=== PATIENT | female | born 1945 | race Caucasian/White ===

== ENCOUNTER 2019-03-03 17:19 | Emergency (ER) | payer MEDICARE ==
[2019-03-03 18:09] VITALS: BP 145/74
[2019-03-03] MEDS ORDERED: Cephalexin CAP* 500 MG PO ONE (18:27)
[2019-03-03] MEDS ORDERED: Phenazopyridine TAB* 100 MG PO ONE (18:27)
--- NOTE | 2019-03-03 18:32 | UC ---
Complaint Male HPI - HPI Summary HPI Summary: Patient is a 73-year-old female with the onset of dysuria urgency and frequency that started yesterday. Today she has noted blood in her urine. She denies any back pain or belly pain. She has had no fever or chills. She denies any nausea vomiting or diarrhea. She has not had a urinary tract infection for over 20 years. She did take a bath the day before her symptoms started. - History of Current Complaint Chief Complaint: UCGU Stated Complaint: URINARY COMPLAINT Time Seen by Provider: 03/03/19 18:21 Hx Obtained From: Patient Onset/Duration: Gradual Onset, Lasting Days Timing: Intermittent, Lasting Seconds Severity Initially: Moderate Severity Currently: Moderate Pain Intensity: 5 - when urinating Pain Scale Used: 0-10 Numeric Location: Suprapubic Character: Burning Aggravating Factor(s): Voiding Associated Signs And Symptoms: Positive: Negative - Allergies/Home Medications Allergies/Adverse Reactions: Allergies Allergy/AdvReac Type Severity Reaction Status Date / Time No Known Allergies Allergy Verified 03/03/19 18:09 Home Medications: Home Medications Cranberry 500 mg PO DAILY 03/03/19 [History Confirmed 03/03/19] PMH/Surg Hx/FS Hx/Imm Hx Previously Healthy: Yes Endocrine History: Hypothyroidism - Surgical History Surgical History: Yes Surgery Procedure, Year, and Place: left side lumpectomy, lymph dissection - Family History Known Family History: Positive: Other - sister with uterine Ca - Social History Alcohol Use: Weekly Alcohol Amount: 2xs a week Substance Use Type: None Smoking Status (MU): Never Smoked Tobacco Review of Systems All Other Systems Reviewed And Are Negative: Yes Constitutional: Positive: Negative Skin: Positive: Negative Eyes: Positive: Negative ENT: Positive: Negative Respiratory: Positive: Negative Cardiovascular: Positive: Negative Gastrointestinal: Positive: Negative Genitourinary: Positive: Dysuria, Hematuria, Frequency, Urgency Motor: Positive: Negative Neurovascular: Positive: Negative Musculoskeletal: Positive: Negative Neurological: Positive: Negative Psychological: Positive: Negative Physical Exam Triage Information Reviewed: Yes Appearance: Well-Appearing, No Pain Distress, Well-Nourished Vital Signs: Initial Vital Signs Temp 98.9 F 03/03/19 18:07 Pulse 79 03/03/19 18:07 Resp 18 03/03/19 18:07 BP 145/74 03/03/19 18:07 Pulse Ox 100 03/03/19 18:07 Eye Exam: Normal Eyes: Positive: Conjunctiva Clear ENT: Positive: Hearing grossly normal, Uvula midline. Negative: Nasal congestion, Nasal drainage, Trismus, Muffled voice, Hoarse voice Neck: Positive: Supple, Nontender Respiratory: Positive: Lungs clear, Normal breath sounds, No respiratory distress Cardiovascular: Positive: RRR, No Murmur Abdomen Description: Positive: Other: - slight suprapubic tenderness Bowel Sounds: Positive: Present Musculoskeletal: Positive: ROM Intact, No Edema Neurological: Positive: Alert Psychological Exam: Normal Skin Exam: Normal Diagnostics - Laboratory Lab Results: UA +++RBCs, +++ leuks Complaint Male Course/Dx - Differential Dx/Diagnosis Provider Diagnosis: Hemorrhagic cystitis Discharge ED - Sign-Out/Discharge Documenting (check all that apply): Patient Departure All imaging exams completed and their final reports reviewed: No Studies - Discharge Plan Condition: Stable Disposition: HOME Prescriptions: Cephalexin CAP* [Keflex CAP*] 500 mg PO BID #10 cap Phenazopyridine TAB* [Pyridium TAB*] 100 mg PO TID #6 tab Patient Education Materials: Urinary Tract Infection in Women (ED) Referrals: No Primary Care Phys,NOPCP [Primary Care Provider] - Additional Instructions: recheck in 3 days if not better a urine culture is pending - Billing Disposition and Condition Condition: STABLE Disposition: Home
--- NOTE | 2019-03-05 15:41 | UC ---
- Progress Note Progress Note: please notify pt no uti stop antibiotic SEE HER PCP THIS WEEK IF SHE HAS NO PCP SHE NEEDS TO SEE UROLOGIST (for evaluation of hematuria) Course/Dx - Diagnoses Provider Diagnoses: Hemorrhagic cystitis Discharge ED - Sign-Out/Discharge Documenting (check all that apply): Post-Discharge Follow Up All imaging exams completed and their final reports reviewed: No Studies - Discharge Plan Condition: Stable Disposition: HOME Prescriptions: Cephalexin CAP* [Keflex CAP*] 500 mg PO BID #10 cap Phenazopyridine TAB* [Pyridium TAB*] 100 mg PO TID #6 tab Patient Education Materials: Urinary Tract Infection in Women (ED) Referrals: No Primary Care Phys,NOPCP [Primary Care Provider] - Additional Instructions: recheck in 3 days if not better a urine culture is pending - Billing Disposition and Condition Condition: STABLE Disposition: Home
== END 2019-03-03 18:40 | disposition home or self-care (01) ==
LOC: UCEAST 17:19
DX: N30.91 Cystitis, unspecified with hematuria (principal); R30.0 Dysuria
CPT/HCPCS: 81003; 87086; 99202; A9270-GY; G0463